=== PATIENT | male | born 1945 | race Caucasian/White ===

== ENCOUNTER 2018-06-26 07:56 | Day surgery (SDC) | payer MEDICARE, OTHER | END 2018-06-26 13:35 | disposition home or self-care (01) | LOC: GIL 07:56 | DX: Z12.11 Encounter for screening for malignant neoplasm of colon (principal); K20.9 Esophagitis, unspecified; K29.70 Gastritis, unspecified, without bleeding; I10 Essential (primary) hypertension; I25.10 Atherosclerotic heart disease of native coronary artery without angina pectoris; G20 Parkinson's disease | CPT/HCPCS: 43239; 88305; 88312 ==

== ENCOUNTER → 2018-07-18 | Outpatient (CLI) | payer MEDICARE, OTHER ==
[2018-07-18] MEDS: METOPROLOL 5 MG INJ (09:10)
[2018-07-18] MEDS: NITROGLYCERIN AEROSOL (4.9 GM) (09:10)
[2018-07-18] MEDS: SOD CHLORIDE 0.9% 100 ML (09:21)
[2018-07-18] MEDS: IOHEXOL 100 ML (09:21)
== END | disposition home or self-care (01) ==
LOC: C/S 08:13
DX: Z95.5 Presence of coronary angioplasty implant and graft (principal)
CPT/HCPCS: 75571; 75574

== ENCOUNTER → 2019-04-19 | Outpatient (CLI) | payer MEDICARE, OTHER | END | disposition home or self-care (01) | LOC: C/S 15:24 | DX: R10.9 Unspecified abdominal pain (principal) | CPT/HCPCS: 74176 ==